=== PATIENT | male | born 1980 | race Caucasian/White ===

== ENCOUNTER 2016-06-11 19:43 | Emergency (ER) | payer OTHER, MEDICARE ==
[~2016-06-11 19:43] MED LIST: /DULO30CA; B12-1CHW PO; CALCCHW12; CLEO150C; THERGRAN; TRAZ50TA; VENL37TA PO; VITA50TA12
[2016-06-11] MEDS ORDERED: ONDANSETRON 4 MG ORAL DISINTEGRATING TAB (S0181) As Ordered ONE (20:32)
[2016-06-11] MEDS ORDERED: ACETAMINOPH W/CODEINE #3 TAB UD As Ordered ONE (20:32)
--- NOTE | 2016-06-11 21:00 | REPUSA ---
CT of the head Clinical history: Headache. Injury. Technique: Multiple axial CT images were obtained through the head without administration of contrast . Findings: The ventricles and sulci are symmetric bilaterally. There is no evidence of acute hemorrhag e or infarct. There is no midline shift, mass effect, or extra-axial fluid collection. The osseous st ructures are unremarkable. Moderate fluid in mucosal thickening is seen in the left maxillary and mahad ateral ethmoid sinuses. The other visualized paranasal sinuses and mastoid air cells are clear. Impression: No acute intracranial hemorrhage or infarct. Bilateral ethmoid and left maxillary sinusit is.
--- NOTE | 2016-06-11 21:00 | REPUSA ---
CT of the cervical spine Clinical history: Pain. Injury. Technique: Multiple axial CT images were obtained through the cervical spine without administration o f contrast. Coronal and sagittal 3-D reconstructed images were also obtained. Comparison: None. Findings: The cervical vertebral bodies are in satisfactory positioning and alignment. No fractures or dislocat ions are demonstrated. The odontoid process is intact. Intervertebral disc spaces are well-maintained . There is no evidence of facet subluxation. The neural foramen appear grossly patent. The cervical c ranial junction is intact. The cervical spinal canal demonstrates normal caliber and contour without evidence of spinal stenosis. The surrounding soft tissues are within normal limits. Impression: Unremarkable CT examination of the cervical spine.
[2016-06-11] MEDS ORDERED: ACETAMINOPHEN/CODEINE #3 TABLET (BULK) As Ordered ONE (21:56)
--- NOTE | 2016-06-11 22:20 | EDDOCDS ---
Nurse's Notes [facility] Name: Teofilo Guevara Age: 36 yrs Sex: Male : 1980 Arrival Date: 06/11/2016 Time: 19:43 Bed I6 / 28 Private MD: NO PRIMARY PHYSICIAN, . Diagnosis: Unspecified injury of head;Concussion;Cervicalgia Presentation: 06/11 20:00 Presenting complaint: Patient states: was at work going to get drink out of his car cz around 1600 slipped fell striking head against car c/o neck pain. Adult Sepsis Screening: The patient does not have new or worsening altered mentation. Patient's respiratory rate is less than 22. Systolic blood pressure is greater than 100. Patient has a qSOFA score of 0- Negative Sepsis Screen. Suicide/Homicide risk assessment- the patient denies having any suicidal and/or homicidal ideations and does not present with any other emotional, behavioral or mental health complaints. 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 Transition of care: patient was not received from another setting of care. 20:00 Acuity: HELGA Level 4 cz 20:00 Method Of Arrival: Walkin/Carried/Asstd cz Triage Assessment: 20:04 General: Appears uncomfortable. Pain: Location: scalp Pain currently is 10 out of 10 on cz a pain scale. HIV screening NA for this visit Offered previously. Historical: - Allergies: PENICILLINS; - Home Meds: 1. losartan 25 mg oral tab once daily 2. Albuterol Inhl prn - PMHx: Hypertension; Asthma; - PSHx: Gastric Bypass; tummy tuck; thigh reduction; Adenoidectomy; Tonsillectomy; Ear Tubes; Cholecystectomy; L-3 surgery; - Social history: Smoking status: Patient states was never smoker of tobacco. No barriers to communication noted, The patient speaks fluent Austrian, Speaks appropriately for age. - Family history: Not pertinent. - : The pt / caregiver states he / she is not on anticoagulants. Home medication list is obtained from the patient. - Exposure Risk Screening:: None identified. Screenin:41 Screening information is obtained from the patient. Fall risk: No risks identified. jmb Assistance ADL's: requires no assistance with activities of daily living. Abuse/DV Screen: The patient / caregiver reports he/she is: not in a situation that causes fear, pain or injury. Nutritional screening: No deficits noted. home support is adequate. 21:51 Advance Directives: Currently, there is no health care proxy. There is no active DNR jmb order. There is no living will. There is no Power of Document Reviewer. Assessment: 20:41 General: Appears in no apparent distress, uncomfortable, Behavior is appropriate for jmb age, cooperative. Pain: Location: back of head and posterior chest Pain currently is 8 out of 10 on a pain scale. Neurological: Level of Consciousness is awake, alert, obeys commands, Oriented to person, place, time, Retail Receiving Clerk are equal bilaterally Speech is normal, Facial symmetry appears normal, Facial symmetry: tongue is midline. Cardiovascular: Capillary refill < 3 seconds Heart tones S1 S2 present Pulses are all present. Rhythm is regular. Respiratory: Airway is patent Respiratory effort is even, unlabored, Respiratory pattern is regular, symmetrical, Breath sounds are clear bilaterally. GI: Abdomen is obese, Bowel sounds present X 4 quads. Abd is soft and non tender X 4 quads. Derm: Skin is pink, warm & dry. Musculoskeletal: Range of motion intact in all extremities. 21:26 General: Appears in no apparent distress, Behavior is appropriate for age, cooperative. jmb Neurological: Level of Consciousness is awake, alert, obeys commands, Oriented to person, place, time. Respiratory: Airway is patent Respiratory effort is even, unlabored, Respiratory pattern is regular, symmetrical. 21:51 General: Patient instructed on discharge instructions. Patient asked if there were any jmb questions regarding discharge, patient stated no. Patient signed discharge instructions. Patient discharged in stable condition. . 22:11 General: Shree Mcintyre notified of patients blood pressure. Provider reported no jmb concerns and ok'd patient for discharge. Vital Signs: 19:44 BP 137 / 82; Pulse 80; Resp 18 S; Temp 96.8(O); Pulse Ox 97% on R/A; Weight 72.57 kg gr2 (R); Height 4 ft. 0 in. (121.92 cm) (R); Pain 9/10; 22:06 BP 160 / 98 RA Supine (man/lg); jmb 22:12 Pulse 65; Resp 20; Temp 96.5(O); Pulse Ox 98% on R/A; Pain 8/10; kb5 19:44 Body Mass Index 48.82 (72.57 kg, 121.92 cm) gr2 Vitals: 19:44 Log In Time: June 11, 2016 at 19:44. gr2 ED Course: 19:44 Patient visited by Francie Infante. gr2 19:44 NO PRIMARY PHYSICIAN, . is Private Physician. gr2 19:44 Patient moved to Waiting gr2 19:46 Patient visited by Francie Infante. gr2 19:46 Patient moved to Pre RCE gr2 20:02 Triage Initiated cz 20:05 Patient moved to I6 cz 20:06 Colten Sandoval RPA-C is PHCP. ck7 20:06 Jesus Manuel Hess DO is Attending Physician. ck7 20:06 Patient visited by Colten Sandoval RPA-C. ck7 20:41 Patient visited by Colten Sandoval RPA-C. ck7 20:41 The patient / caregiver is instructed regarding the plan of care and ED course. jmb 20:41 No IV's were initiated during this patient's visit. No procedures done that require jmb assistance. 20:43 Patient visited by Lupillo Collins RN. jmb 21:26 Patient visited by Lupillo Collins RN. jmb 21:41 CT Spine,Cervical W/o Contrast Returned. EDMS 21:41 CT Head Without Contrast Returned. EDMS 21:49 [facility] is Referral Physician. ck7 21:49 Waldemar Gomez MD is Referral Physician. ck7 22:09 [facility] Payment Agreement was scanned into [employer] and attached to record. gjb 22:13 Patient visited by Timothy Sage PCA. kb5 Administered Medications: 20:38 Drug: Acetaminophen-Codeine 2 tabs [acetaminophen 300 mg-codeine 30 mg tablet (2 tabs)] nita Route: PO; 20:38 Drug: Ondansetron ODT 4 mg [ondansetron 4 mg disintegrating tablet (1 tabs)] Route: PO; jmb 21:59 Drug: Acetaminophen-Codeine, 4 pack- 1 packets [acetaminophen 300 mg-codeine 30 mg jmb tablet (1 tabs)] {Co-Signature: [email or web address] (Marco A Moody RN).} Route: PO; Order Results: Radiology Order: CT Head Without Contrast Test: CT Head Without Contrast REASON FOR EXAMINATION: HEAD INJURY, R/O BLEED; ; CT of the head; Clinical history: Headache. Injury.; Technique: Multiple axial CT images were obtained through the head without administration of contrast; .; Findings: The ventricles and sulci are symmetric bilaterally. There is no evidence of acute hemorrhag; e or infarct. There is no midline shift, mass effect, or extra-axial fluid collection. The osseous st; ructures are unremarkable. Moderate fluid in mucosal thickening is seen in the left maxillary and mahad; ateral ethmoid sinuses. The other visualized paranasal sinuses and mastoid air cells are clear.; Impression: No acute intracranial hemorrhage or infarct. Bilateral ethmoid and left maxillary sinusit; is.; ; Radiology Order: CT Spine,Cervical W/o Contrast Test: CT Spine,Cervical W/o Contrast REASON FOR EXAMINATION: FALL, NECK PAIN, R/O FX; ; CT of the cervical spine; Clinical history: Pain. Injury.; Technique: Multiple axial CT images were obtained through the cervical spine without administration o; f contrast. Coronal and sagittal 3-D reconstructed images were also obtained.; Comparison: None.; Findings:; The cervical vertebral bodies are in satisfactory positioning and alignment. No fractures or dislocat; ions are demonstrated. The odontoid process is intact. Intervertebral disc spaces are well-maintained; . There is no evidence of facet subluxation. The neural foramen appear grossly patent. The cervical c; ranial junction is intact. The cervical spinal canal demonstrates normal caliber and contour without; evidence of spinal stenosis. The surrounding soft tissues are within normal limits.; Impression: Unremarkable CT examination of the cervical spine.; ; Outcome: 21:50 Discharge ordered by Provider. ck7 21:51 Discharge Assessment: Patient awake, alert and oriented x 3. No cognitive and/or jmb functional deficits noted. Patient verbalized understanding of disposition instructions. Patient awake and alert. obeys commands, Oriented to person, place and time. Patient verbalized understanding of disposition instructions. Patient has no functional deficits. patient administered narcotics - yes. Pt provided with safe discharge. The following High Risk Discharge criteria are identified: None. Discharged to home ambulatory. Condition: stable Condition: improved. Discharge instructions given to patient, Instructed on discharge instructions, follow up and referral plans. Demonstrated understanding of instructions, Pt was receptive of discharge instructions/ teaching. No special radiology studies were completed. Property sent home with patient. 21:52 CT Study completed. b 22:19 Patient left the ED. nita Signatures: Dispatcher [employer] EDNathaniel Dia, RN RN Timothy Carrasco, BRANCH ADMINISTRATOR BRANCH ADMINISTRATOR kb5 Colten Sandoval, RPA-C RPA-Cck7 Francie Infante gr2 Lupillo Collins,RN RN Maribel Stoner RN jf3 SERGEI
--- NOTE | 2016-06-11 22:20 | EDDOCDS ---
Physician Documentation [facility] Name: Teofiol Guevara Age: 36 yrs Sex: Male : 1980 Arrival Date: 06/11/2016 Time: 19:43 Bed I6 / 28 Private MD: NO PRIMARY PHYSICIAN, . Disposition: 06/11/16 21:50 Discharged to Home/Self Care. Impression: Unspecified injury of head, Concussion, Cervicalgia. - Condition is Stable. - Discharge Instructions: Concussion, Adult, Head Injury, Adult, Soft Tissue Injury of the Neck. - Prescriptions for Tylenol- Codeine #3 300-30 mg Oral Tablet - take 2 tablets by ORAL route every 6 hours As needed MDD: 4 tabs; 16 tablet. - Work Release Form - 3 day, Medication Reconciliation, Local Pharmacy Hours form. - [facility] up: [facility]; When: 2 - 3 days; Reason: Recheck today's complaints, Continuance of care. Follow up: Waldemar Gomez MD; When: 2 - 3 days; Reason: Recheck today's complaints, Continuance of care. - Problem is new. - Symptoms have improved. - Notes: USE PAIN MEDICATION INSTRUCTED, FOLLOW UP WITH YOUR DOCTOR AND DR GOMEZ, RETURN TO THE ER IF THE SYMPTOMS WORSEN OR BECOME CONCERNING Historical: - Allergies: PENICILLINS; - Home Meds: 1. losartan 25 mg oral tab once daily 2. Albuterol Inhl prn - PMHx: Hypertension; Asthma; - PSHx: Gastric Bypass; tummy tuck; thigh reduction; Adenoidectomy; Tonsillectomy; Ear Tubes; Cholecystectomy; L-3 surgery; - Social history: Smoking status: Patient states was never smoker of tobacco. No barriers to communication noted, The patient speaks fluent Uzbek, Speaks appropriately for age. - Family history: Not pertinent. - : The pt / caregiver states he / she is not on anticoagulants. Home medication list is obtained from the patient. - Exposure Risk Screening:: None identified. Vital Signs: 06/11 19:44 BP 137 / 82; Pulse 80; Resp 18 S; Temp 96.8(O); Pulse Ox 97% on R/A; Weight 72.57 kg / gr2 159.99 lbs (R); Height 4 ft. 0 in. (121.92 cm) (R); Pain 9/10; 22:06 BP 160 / 98 RA Supine (man/lg); jmb 22:12 Pulse 65; Resp 20; Temp 96.5(O); Pulse Ox 98% on R/A; Pain 8/10; kb5 19:44 Body Mass Index 48.82 (72.57 kg, 121.92 cm) gr2 MDM: 20:14 Apply Linh Collar to Patient. ordered. ck7 20:14 Acetaminophen-Codeine 300 mg-30 mg 2 tabs PO once ordered. ck7 20:15 CT Head Without Contrast Ordered. EDMS 20:15 CT Spine,Cervical W/o Contrast Ordered. EDMS 20:17 Ondansetron ODT Oral Disintegrating Tablet 4 mg PO once ordered. ck7 20:38 Financial registration complete. gjb 21:47 CT Head Without Contrast Reviewed. ck7 21:47 CT Spine,Cervical W/o Contrast Reviewed. ck7 21:52 Acetaminophen-Codeine, 4 pack- 300 mg-30 mg 1 packets PO once; Dispense with patient. ck7 Take per package instructions. ordered. 22:09 [facility] Payment Agreement was scanned into [email or web address] and attached to record. [facility] Administered Medications: 20:38 Drug: Acetaminophen-Codeine 2 tabs [acetaminophen 300 mg-codeine 30 mg tablet (2 tabs)] nita Route: PO; 20:38 Drug: Ondansetron ODT 4 mg [ondansetron 4 mg disintegrating tablet (1 tabs)] Route: PO; b 21:59 Drug: Acetaminophen-Codeine, 4 pack- 1 packets [acetaminophen 300 mg-codeine 30 mg nita tablet (1 tabs)] {Co-Signature: [email or web address] (Marco A Moody RN).} Route: PO; Signatures: Dispatcher [employer] EDMS Nathaniel Talley, Colten Hidalgo RN, CLARISA-C RPA-Cck7 Lupillo Collins RN RN jmb Beck, Gabriela gjb Justin Farman RN jf3 The chart was reviewed and I authenticate all verbal orders and agree with the evaluation and treatment provided.Attachments: 22:09 [facility] Payment Agreement [facility] MTDD
--- NOTE | 2016-06-13 23:20 | EDDOCDS ---
Nurse's Notes [facility] Name: Teofilo Guevara Age: 36 yrs Sex: Male : 1980 Arrival Date: 06/11/2016 Time: 19:43 Bed I6 / 28 Private MD: NO PRIMARY PHYSICIAN, . Diagnosis: Unspecified injury of head;Concussion;Cervicalgia Presentation: 06/11 20:00 Presenting complaint: Patient states: was at work going to get drink out of his car cz around 1600 slipped fell striking head against car c/o neck pain. Adult Sepsis Screening: The patient does not have new or worsening altered mentation. Patient's respiratory rate is less than 22. Systolic blood pressure is greater than 100. Patient has a qSOFA score of 0- Negative Sepsis Screen. Suicide/Homicide risk assessment- the patient denies having any suicidal and/or homicidal ideations and does not present with any other emotional, behavioral or mental health complaints. 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 Transition of care: patient was not received from another setting of care. 20:00 Acuity: HELGA Level 4 cz 20:00 Method Of Arrival: Walkin/Carried/Asstd cz Triage Assessment: 20:04 General: Appears uncomfortable. Pain: Location: scalp Pain currently is 10 out of 10 on cz a pain scale. HIV screening NA for this visit Offered previously. Historical: - Allergies: PENICILLINS; - Home Meds: 1. losartan 25 mg oral tab once daily 2. Albuterol Inhl prn - PMHx: Hypertension; Asthma; - PSHx: Gastric Bypass; tummy tuck; thigh reduction; Adenoidectomy; Tonsillectomy; Ear Tubes; Cholecystectomy; L-3 surgery; - Social history: Smoking status: Patient states was never smoker of tobacco. No barriers to communication noted, The patient speaks fluent South Korean, Speaks appropriately for age. - Family history: Not pertinent. - : The pt / caregiver states he / she is not on anticoagulants. Home medication list is obtained from the patient. - Exposure Risk Screening:: None identified. Screenin:41 Screening information is obtained from the patient. Fall risk: No risks identified. jmb Assistance ADL's: requires no assistance with activities of daily living. Abuse/DV Screen: The patient / caregiver reports he/she is: not in a situation that causes fear, pain or injury. Nutritional screening: No deficits noted. home support is adequate. 21:51 Advance Directives: Currently, there is no health care proxy. There is no active DNR jmb order. There is no living will. There is no Power of Body Make Up Artist. Assessment: 20:41 General: Appears in no apparent distress, uncomfortable, Behavior is appropriate for jmb age, cooperative. Pain: Location: back of head and posterior chest Pain currently is 8 out of 10 on a pain scale. Neurological: Level of Consciousness is awake, alert, obeys commands, Oriented to person, place, time, [place] Department Supervisor are equal bilaterally Speech is normal, Facial symmetry appears normal, Facial symmetry: tongue is midline. Cardiovascular: Capillary refill < 3 seconds Heart tones S1 S2 present Pulses are all present. Rhythm is regular. Respiratory: Airway is patent Respiratory effort is even, unlabored, Respiratory pattern is regular, symmetrical, Breath sounds are clear bilaterally. GI: Abdomen is obese, Bowel sounds present X 4 quads. Abd is soft and non tender X 4 quads. Derm: Skin is pink, warm & dry. Musculoskeletal: Range of motion intact in all extremities. 21:26 General: Appears in no apparent distress, Behavior is appropriate for age, cooperative. jmb Neurological: Level of Consciousness is awake, alert, obeys commands, Oriented to person, place, time. Respiratory: Airway is patent Respiratory effort is even, unlabored, Respiratory pattern is regular, symmetrical. 21:51 General: Patient instructed on discharge instructions. Patient asked if there were any jmb questions regarding discharge, patient stated no. Patient signed discharge instructions. Patient discharged in stable condition. . 22:11 General: Shree Mcintyre notified of patients blood pressure. Provider reported no jmb concerns and ok'd patient for discharge. Vital Signs: 19:44 BP 137 / 82; Pulse 80; Resp 18 S; Temp 96.8(O); Pulse Ox 97% on R/A; Weight 72.57 kg gr2 (R); Height 4 ft. 0 in. (121.92 cm) (R); Pain 9/10; 22:06 BP 160 / 98 RA Supine (man/lg); jmb 22:12 Pulse 65; Resp 20; Temp 96.5(O); Pulse Ox 98% on R/A; Pain 8/10; kb5 19:44 Body Mass Index 48.82 (72.57 kg, 121.92 cm) gr2 Vitals: 19:44 Log In Time: June 11, 2016 at 19:44. gr2 ED Course: 19:44 Patient visited by Francie Infante. gr2 19:44 NO PRIMARY PHYSICIAN, . is Private Physician. gr2 19:44 Patient moved to Waiting gr2 19:46 Patient visited by Francie Infante. gr2 19:46 Patient moved to Pre RCE gr2 20:02 Triage Initiated cz 20:05 Patient moved to I6 cz 20:06 Colten Sandoval RPA-C is PHCP. ck7 20:06 Jesus Manuel Hess DO is Attending Physician. ck7 20:06 Patient visited by Colten Sandoval RPA-C. ck7 20:41 Patient visited by Colten Sandoval RPA-C. ck7 20:41 The patient / caregiver is instructed regarding the plan of care and ED course. jmb 20:41 No IV's were initiated during this patient's visit. No procedures done that require jmb assistance. 20:43 Patient visited by Lupillo Collins RN. jmb 21:26 Patient visited by Lupillo Collins RN. jmb 21:41 CT Spine,Cervical W/o Contrast Returned. EDMS 21:41 CT Head Without Contrast Returned. EDMS 21:49 [facility] is Referral Physician. ck7 21:49 Waldemar Gomez MD is Referral Physician. ck7 22:09 [facility] Payment Agreement was scanned into [employer] and attached to record. gjb 22:13 Patient visited by Timothy Sage PCA. kb5 06/12 10:23 T-Sheet-- Draft Copy was scanned into [employer] and attached to record. gb 10:24 Radiology Report was scanned into [employer] and attached to record. gb Administered Medications: 06/11 20:38 Drug: Acetaminophen-Codeine 2 tabs [acetaminophen 300 mg-codeine 30 mg tablet (2 tabs)] nita Route: PO; 20:38 Drug: Ondansetron ODT 4 mg [ondansetron 4 mg disintegrating tablet (1 tabs)] Route: PO; jmb 21:59 Drug: Acetaminophen-Codeine, 4 pack- 1 packets [acetaminophen 300 mg-codeine 30 mg jmb tablet (1 tabs)] {Co-Signature: [email or web address] (Marco A Moody RN).} Route: PO; Order Results: Radiology Order: CT Head Without Contrast Test: CT Head Without Contrast REASON FOR EXAMINATION: HEAD INJURY, R/O BLEED; ; CT of the head; Clinical history: Headache. Injury.; Technique: Multiple axial CT images were obtained through the head without administration of contrast; .; Findings: The ventricles and sulci are symmetric bilaterally. There is no evidence of acute hemorrhag; e or infarct. There is no midline shift, mass effect, or extra-axial fluid collection. The osseous st; ructures are unremarkable. Moderate fluid in mucosal thickening is seen in the left maxillary and mahad; ateral ethmoid sinuses. The other visualized paranasal sinuses and mastoid air cells are clear.; Impression: No acute intracranial hemorrhage or infarct. Bilateral ethmoid and left maxillary sinusit; is.; ; Radiology Order: CT Spine,Cervical W/o Contrast Test: CT Spine,Cervical W/o Contrast REASON FOR EXAMINATION: FALL, NECK PAIN, R/O FX; ; CT of the cervical spine; Clinical history: Pain. Injury.; Technique: Multiple axial CT images were obtained through the cervical spine without administration o; f contrast. Coronal and sagittal 3-D reconstructed images were also obtained.; Comparison: None.; Findings:; The cervical vertebral bodies are in satisfactory positioning and alignment. No fractures or dislocat; ions are demonstrated. The odontoid process is intact. Intervertebral disc spaces are well-maintained; . There is no evidence of facet subluxation. The neural foramen appear grossly patent. The cervical c; ranial junction is intact. The cervical spinal canal demonstrates normal caliber and contour without; evidence of spinal stenosis. The surrounding soft tissues are within normal limits.; Impression: Unremarkable CT examination of the cervical spine.; ; Outcome: 21:50 Discharge ordered by Provider. ck7 21:51 Discharge Assessment: Patient awake, alert and oriented x 3. No cognitive and/or jmb functional deficits noted. Patient verbalized understanding of disposition instructions. Patient awake and alert. obeys commands, Oriented to person, place and time. Patient verbalized understanding of disposition instructions. Patient has no functional deficits. patient administered narcotics - yes. Pt provided with safe discharge. The following High Risk Discharge criteria are identified: None. Discharged to home ambulatory. Condition: stable Condition: improved. Discharge instructions given to patient, Instructed on discharge instructions, follow up and referral plans. Demonstrated understanding of instructions, Pt was receptive of discharge instructions/ teaching. No special radiology studies were completed. Property sent home with patient. 21:52 CT Study completed. jmb 22:19 Patient left the ED. b Signatures: Dispatcher [employer] EDMS Nathaniel Talley, RN RN Stephanie Small, Reg Reg gb Timothy Sage, ENVIRONMENTAL HEALTH AND SAFETY LEADER ENVIRONMENTAL HEALTH AND SAFETY LEADER kb5 Colten Sandoval, RPA-C RPA-Cck7 Francie Infante gr2 Lupillo Collins,Maribel Joseph RN, RN jf3 Chart Complete SERGEI
--- NOTE | 2016-06-13 23:20 | EDDOCDS ---
Physician Documentation [facility] Name: Teofilo Guevara Age: 36 yrs Sex: Male : 1980 Arrival Date: 06/11/2016 Time: 19:43 Bed I6 / 28 Private MD: NO PRIMARY PHYSICIAN, . Disposition: 06/11/16 21:50 Discharged to Home/Self Care. Impression: Unspecified injury of head, Concussion, Cervicalgia. - Condition is Stable. - Discharge Instructions: Concussion, Adult, Head Injury, Adult, Soft Tissue Injury of the Neck. - Prescriptions for Tylenol- Codeine #3 300-30 mg Oral Tablet - take 2 tablets by ORAL route every 6 hours As needed MDD: 4 tabs; 16 tablet. - Work Release Form - 3 day, Medication Reconciliation, Local Pharmacy Hours form. - [facility]; When: 2 - 3 days; Reason: Recheck today's complaints, Continuance of care. Follow up: Waldemar Gomez MD; When: 2 - 3 days; Reason: Recheck today's complaints, Continuance of care. - Problem is new. - Symptoms have improved. - Notes: USE PAIN MEDICATION INSTRUCTED, FOLLOW UP WITH YOUR DOCTOR AND DR GOMEZ, RETURN TO THE ER IF THE SYMPTOMS WORSEN OR BECOME CONCERNING Historical: - Allergies: PENICILLINS; - Home Meds: 1. losartan 25 mg oral tab once daily 2. Albuterol Inhl prn - PMHx: Hypertension; Asthma; - PSHx: Gastric Bypass; tummy tuck; thigh reduction; Adenoidectomy; Tonsillectomy; Ear Tubes; Cholecystectomy; L-3 surgery; - Social history: Smoking status: Patient states was never smoker of tobacco. No barriers to communication noted, The patient speaks fluent Sinhala, Speaks appropriately for age. - Family history: Not pertinent. - : The pt / caregiver states he / she is not on anticoagulants. Home medication list is obtained from the patient. - Exposure Risk Screening:: None identified. Vital Signs: 06/11 19:44 BP 137 / 82; Pulse 80; Resp 18 S; Temp 96.8(O); Pulse Ox 97% on R/A; Weight 72.57 kg / gr2 159.99 lbs (R); Height 4 ft. 0 in. (121.92 cm) (R); Pain 9/10; 22:06 BP 160 / 98 RA Supine (man/lg); jmb 22:12 Pulse 65; Resp 20; Temp 96.5(O); Pulse Ox 98% on R/A; Pain 8/10; kb5 19:44 Body Mass Index 48.82 (72.57 kg, 121.92 cm) gr2 MDM: 20:14 Apply Linh Collar to Patient. ordered. ck7 20:14 Acetaminophen-Codeine 300 mg-30 mg 2 tabs PO once ordered. ck7 20:15 CT Head Without Contrast Ordered. EDMS 20:15 CT Spine,Cervical W/o Contrast Ordered. EDMS 20:17 Ondansetron ODT Oral Disintegrating Tablet 4 mg PO once ordered. ck7 20:38 Financial registration complete. gjb 21:47 CT Head Without Contrast Reviewed. ck7 21:47 CT Spine,Cervical W/o Contrast Reviewed. ck7 21:52 Acetaminophen-Codeine, 4 pack- 300 mg-30 mg 1 packets PO once; Dispense with patient. ck7 Take per package instructions. ordered. 22:09 [facility] Payment Agreement was scanned into [employer] and attached to record. b 06/12 10:23 T-Sheet-- Draft Copy was scanned into [employer] and attached to record. gb 10:24 Radiology Report was scanned into [employer] and attached to record. gb Administered Medications: 06/11 20:38 Drug: Acetaminophen-Codeine 2 tabs [acetaminophen 300 mg-codeine 30 mg tablet (2 tabs)] [facility] Route: PO; 20:38 Drug: Ondansetron ODT 4 mg [ondansetron 4 mg disintegrating tablet (1 tabs)] Route: PO; jmb 21:59 Drug: Acetaminophen-Codeine, 4 pack- 1 packets [acetaminophen 300 mg-codeine 30 mg [facility] tablet (1 tabs)] {Co-Signature: buzz (Marco A Moody RN).} Route: PO; Signatures: Dispatcher [employer] EDMS Nathaniel Talley, RN RN Stephanie Small, Reg Reg gb Colten Sandoval, RPA-C RPA-Cck7 Lupillo Collins,Maribel Joseph RN, RN The chart was reviewed and I authenticate all verbal orders and agree with the evaluation and treatment provided.Attachments: 22:09 [facility] Payment Agreement gjb 06/12 10:23 T-Sheet-- Draft Copy gb Chart Complete MTDD
--- NOTE | 2016-06-13 23:20 | EDDOCDS ---
Physician Documentation [facility] Name: Teofilo Guevara Age: 36 yrs Sex: Male : 1980 Arrival Date: 06/11/2016 Time: 19:43 Bed I6 / 28 Private MD: NO PRIMARY PHYSICIAN, . Disposition: 06/11/16 21:50 Discharged to Home/Self Care. Impression: Unspecified injury of head, Concussion, Cervicalgia. - Condition is Stable. - Discharge Instructions: Concussion, Adult, Head Injury, Adult, Soft Tissue Injury of the Neck. - Prescriptions for Tylenol- Codeine #3 300-30 mg Oral Tablet - take 2 tablets by ORAL route every 6 hours As needed MDD: 4 tabs; 16 tablet. - Work Release Form - 3 day, Medication Reconciliation, Local Pharmacy Hours form. - Follow up: [facility]; When: 2 - 3 days; Reason: Recheck today's complaints, Continuance of care. Follow up: Waldemar Gomez MD; When: 2 - 3 days; Reason: Recheck today's complaints, Continuance of care. - Problem is new. - Symptoms have improved. - Notes: USE PAIN MEDICATION INSTRUCTED, FOLLOW UP WITH YOUR DOCTOR AND DR GOMEZ, RETURN TO THE ER IF THE SYMPTOMS WORSEN OR BECOME CONCERNING Historical: - Allergies: PENICILLINS; - Home Meds: 1. losartan 25 mg oral tab once daily 2. Albuterol Inhl prn - PMHx: Hypertension; Asthma; - PSHx: Gastric Bypass; tummy tuck; thigh reduction; Adenoidectomy; Tonsillectomy; Ear Tubes; Cholecystectomy; L-3 surgery; - Social history: Smoking status: Patient states was never smoker of tobacco. No barriers to communication noted, The patient speaks fluent Slovak, Speaks appropriately for age. - Family history: Not pertinent. - : The pt / caregiver states he / she is not on anticoagulants. Home medication list is obtained from the patient. - Exposure Risk Screening:: None identified. Vital Signs: 06/11 19:44 BP 137 / 82; Pulse 80; Resp 18 S; Temp 96.8(O); Pulse Ox 97% on R/A; Weight 72.57 kg / gr2 159.99 lbs (R); Height 4 ft. 0 in. (121.92 cm) (R); Pain 9/10; 22:06 BP 160 / 98 RA Supine (man/lg); jmb 22:12 Pulse 65; Resp 20; Temp 96.5(O); Pulse Ox 98% on R/A; Pain 8/10; kb5 19:44 Body Mass Index 48.82 (72.57 kg, 121.92 cm) gr2 MDM: 20:14 Apply Linh Collar to Patient. ordered. ck7 20:14 Acetaminophen-Codeine 300 mg-30 mg 2 tabs PO once ordered. ck7 20:15 CT Head Without Contrast Ordered. EDMS 20:15 CT Spine,Cervical W/o Contrast Ordered. EDMS 20:17 Ondansetron ODT Oral Disintegrating Tablet 4 mg PO once ordered. ck7 20:38 Financial registration complete. gjb 21:47 CT Head Without Contrast Reviewed. ck7 21:47 CT Spine,Cervical W/o Contrast Reviewed. ck7 21:52 Acetaminophen-Codeine, 4 pack- 300 mg-30 mg 1 packets PO once; Dispense with patient. ck7 Take per package instructions. ordered. 22:09 [facility] Payment Agreement was scanned into [employer] and attached to record. b 06/12 10:23 T-Sheet-- Draft Copy was scanned into [employer] and attached to record. gb 10:24 Radiology Report was scanned into [employer] and attached to record. gb Administered Medications: 06/11 20:38 Drug: Acetaminophen-Codeine 2 tabs [acetaminophen 300 mg-codeine 30 mg tablet (2 tabs)] [facility] Route: PO; 20:38 Drug: Ondansetron ODT 4 mg [ondansetron 4 mg disintegrating tablet (1 tabs)] Route: PO; jmb 21:59 Drug: Acetaminophen-Codeine, 4 pack- 1 packets [acetaminophen 300 mg-codeine 30 mg [facility] tablet (1 tabs)] {Co-Signature: buzz (Marco A Moody RN).} Route: PO; Signatures: Dispatcher [employer] EDMS Nathaniel Talley, RN RN Stephanie Small, Reg Reg gb Colten Sandoval, RPA-C RPA-Cck7 Lupillo Collins,Maribel Jsoeph RN, RN The chart was reviewed and I authenticate all verbal orders and agree with the evaluation and treatment provided.Attachments: 22:09 [facility] Payment Agreement gjb 06/12 10:23 T-Sheet-- Draft Copy gb Chart Complete MTDD
== END 2016-06-11 22:19 | disposition home or self-care (01) ==
LOC: M ED 19:43
DX: S06.0X0A Concussion without loss of consciousness, initial encounter (principal); M54.2 Cervicalgia; W18.09XA Striking against other object with subsequent fall, initial encounter; Y92.019 Unspecified place in single-family (private) house as the place of occurrence of the external cause; Y99.8 Other external cause status; I10 Essential (primary) hypertension; J45.909 Unspecified asthma, uncomplicated; Z98.84 Bariatric surgery status; Z90.49 Acquired absence of other specified parts of digestive tract; Z90.89 Acquired absence of other organs; Z79.899 Other long term (current) drug therapy; Z88.0 Allergy status to penicillin

== ENCOUNTER → 2020-04-27 | Outpatient (CLI) | payer BC ==
[~2020-04-27] MED LIST changes: -/DULO30CA; +CYMB1CAP5
--- NOTE | 2020-04-28 23:49 | ECWPNPC ---
PATIENT NAME: PEREZ NEWMAN : 1980 GENDER: MALE VISIT DATE: 04/27/2020 DISCHARGE DATE: 04/27/20 1159 VISIT LOCKED DATE TIME: PHYSICIAN: RENETTA DUONG RESOURCE: RENETTA DUONG REASON FOR APPOINTMENT 1. BACK NECK HISTORY OF PRESENT ILLNESS DEPRESSION SCREENING: PHQ-9 LITTLE INTEREST OR PLEASURE IN DOING THINGSSEVERAL DAYS FEELING DOWN, DEPRESSED, OR HOPELESSMORE THAN HALF THE DAYS TROUBLE FALLING OR STAYING ASLEEP, OR SLEEPING TOO MUCHNOT AT ALL FEELING TIRED OR HAVING LITTLE ENERGYSEVERAL DAYS POOR APPETITE OR OVEREATING NOT AT ALL FEELING BAD ABOUT YOURSELF-OR THAT YOU ARE A FAILURE OR HAVE LET YOURSELF OR YOUR FAMILY DOWN MORE THAN HALF THE DAYS TROUBLE CONCENTRATING ON THINGS, SUCH READING THE NEWSPAPER OR WATCHING TELEVISION NOT AT ALL MOVING OR SPEAKING SO SLOWLY THAT OTHER PEOPLE COULD HAVE NOTICED. OR THE OPPOSITE- BEING SO FIDGETY OR RESTLESS THAT YOU HAVE BEEN MOVING AROUND A LOT MORE THAN USUALMORE THAN HALF THE DAYS THOUGHTS THAT YOU WOULD BE BETTER OFF , OR OF HURTING YOURSELF IN SOME WAY?NOT AT ALL TOTAL SCORE:8 INTERPRETATIONMILD DEPRESSION PHQ-2 (2015 EDITION) LITTLE INTEREST OR PLEASURE IN DOING THINGS?NOT AT ALL FEELING DOWN, DEPRESSED, OR HOPELESS?MORE THAN HALF THE DAYS TOTAL SCORE2 39-YEAR-OLD MALE IN FOR INITIAL PAIN CONSULT REGARDING HIS NECK AND BACK. PATIENT STATES THAT HE HAS HAD LOW BACK PAIN SINCE 2000 AND HE FURTHER STATES HIS NECK PAIN STARTED IN 2017 WHEN HE FELL ON THE ICE AND HIT HIS HEAD ON A CAR. HE RATES HIS PAIN CURRENTLY AT A 10 OUT OF 10 AND DESCRIBES IT STABBING. WHEN ASKED PATIENT ADMITS TO BEING ON PERCOCET IN THE PAST AND FOUND FINDING IT BENEFICIAL. GENERAL: - - -. FALL RISK SCREENING: SCREENING :NO FALLS REPORTED IN THE LAST YEAR PAIN SCREENING: PATIENT HAS A COMPLAINT OF ACUTE OR CHRONIC PAIN :YES LOCATION OF PAIN:NECK, MID BACK, LOW BACK INTENSITY OF PAIN (SCALE OF 1 TO 10):10 WHAT DOES YOUR PAIN FEEL LIKE:STABBING DURATION:CONTINOUS PAIN IS INCREASED BY:ACTIVITIES PAIN IS DECREASED BY:OTHERS LAYING FLAT NURSING NOTE: - - -. PAIN CENTER INTAKE QUESTIONS: DO YOU HAVE A HISTORY OF MRSA? :NO DO YOU TAKE A BLOOD THINNERS? :NO DO YOU HAVE ANY BLEEDING DISORDERS? :NO ANY NEW NUMBNESS OR WEAKNESS IN YOUR LEGS OR ARMS? :NO ANY PACEMAKER,DEFIBRILLATOR, OR DORSAL COLUMN STIMULATOR? :NO DO YOU HAVE ANY RASHES OR OPEN SORES? :NO ARE YOU ALLERGIC TO IV DYE? :NO ARE YOU DIABETIC? :NO ANY NEW PROBLEMS WITH YOUR MEDICATIONS? :NO HAVE YOU RECEIVED A VACCINE IN THE PAST 30 DAYS? :NO DO YOU PLAN TO RECEIVE A VACCINE IN THE NEXT 21 DAYS? :NO DO YOU NEED ANY PRESCRIPTION? :NO DO YOU TAKE ANY IMMUNOSUPPRESSIVE MEDICATIONS? :NO ANY HISTORY OF SEIZURES? :NO ANY HISTORY OF CARDIAC ISSUES OR EVENTS? :NO DO YOU HAVE SLEEP APNEA? :YES DO YOU WEAR A CPAP?YES ANY RECENT HEAD INJURY? :NO DO YOU HAVE ANY NEW INFECTIONS? :NO CURRENT MEDICATIONS TAKING VITAMIN B12 100 MCG TABLET DIRECTED ORALLY ONE TAB BY MOUTH 3 TIMES WEEKLY TAKING ALBUTEROL SULFATE (2.5 MG/3ML) 0.083% NEBULIZATION SOLUTION 3 ML NEEDED INHALATION EVERY 8 HOURS NEEDED TAKING ALBUTEROL SULFATE HFA 108 (90 BASE) MCG/ACT AEROSOL SOLUTION 1 PUFF NEEDED INHALATION EVERY 6 HOURS NEEDED TAKING SERTRALINE HCL 100 MG TABLET 1.5 TABS ORALLY ONCE A DAY TAKING FLUTICASONE PROPIONATE 50 MCG/ACT SUSPENSION 1 SPRAY IN EACH NOSTRIL NASALLY ONCE A DAY TAKING COLACE 100 MG CAPSULE 1 CAPSULE NEEDED ORALLY ONCE A DAY, NOTES: UP TO 4 TIMES A DAY PRN TAKING LEVOCETIRIZINE DIHYDROCHLORIDE 5 MG TABLET 1 TABLET IN THE EVENING ORALLY ONCE A DAY TAKING PRAZOSIN HCL 2 MG CAPSULE 1 CAPSULE AT BEDTIME ORALLY ONCE A DAY TAKING BUSPIRONE HCL 15 MG TABLET 1 TABLET ORALLY THREE TIMES DAILY TAKING LITHIUM CARBONATE 300 MG CAPSULE 1 CAP ORALLY BID TAKING REMERON 15 MG TABLET 1/2 TAB ORALLY BEFORE BEDTIME TAKING BIOTIN MAXIMUM STRENGTH 5000 MCG CAPSULE 1 CAPSULE ORALLY ONCE A DAY TAKING VITAMIN D3 MAXIMUM STRENGTH 125 MCG (5000 UT) CAPSULE DIRECTED ORALLY DAILY TAKING LOSARTAN POTASSIUM 50 MG TABLET 1 TABLET ORALLY ONCE A DAY TAKING HYDROCHLOROTHIAZIDE 12.5 MG CAPSULE 1 CAPSULE IN THE MORNING ORALLY ONCE A DAY NOT-TAKING TRAMADOL HCL 50 MG TABLET 1 TABLET NEEDED ORALLY THREE TIMES DAILY NEEDED NOT-TAKING PERCOCET 5-325 MG TABLET 1 TABLET NEEDED ORALLY EVERY 6 HRS NOT-TAKING GABAPENTIN 600 MG TABLET 1 TABLET ORALLY THREE TIMES DAILY MEDICATION LIST REVIEWED AND RECONCILED WITH THE PATIENT PAST MEDICAL HISTORY HYPERTENSION ASTHMA DEPRESSION/ANXIETY/MOOD DISORDER GERD CHRONIC NECK & BACK PAIN SEASONAL ALLERGIES ACONDROPLASIA ( DWARFISM) ALLERGIC RHINITIS VITAMIN D DEFICIENCY CERVICAL DISC DISPLACEMENT DISC DISPLACEMENT- LUMBAR ALLERGIES PENICILLIN: DYSPNEA - ALLERGY DARVOCET-N 100: RASH - ALLERGY SOMA: RASH - ALLERGY WELLBUTRIN: RASH - ALLERGY VICODIN: RASH - ALLERGY SURGICAL HISTORY GASTRIC BYPASS 2008 HERNIA REPAIRS ( MULTIPLE) 2008, 2016, 2017 CHOLECYSTECTOMY 2009 TONSILS, ADENOIDS, TUBE INSERTION 1987 BACK SURGERY 2003 HERNIA REPAIR WITH MESH INSERTION 2016 TUMMY TUCK, THIGH REDUCTION 2010 FAMILY HISTORY FATHER: ALIVE, DIAGNOSED WITH HYPERTENSION MOTHER: ALIVE, HYPERTENSION, DIABETES 1 BROTHER(S) , 1 SISTER(S) - HEALTHY. MOTHER- HYPERTENSION, DIABETESFATHER- HYPERTENSION, HEART DISEASE. SOCIAL HISTORY GENERAL: TOBACCO USE ARE YOU A:NONSMOKER LATEX QUESTIONNAIRE LATEX ALLERGY : HAVE YOU EVER DEVELOPED ANY TYPE OF REACTION AFTER HANDLING LATEX PRODUCTS SUCH RUBBER GLOVES, CONDOMS, DIAPHRAGMS, BALLOONS, SOCKS, OR UNDERWEAR?NO LATEX ALLERGY : HAVE YOU EVER DEVELOPED ANY TYPE OF REACTION DURING OR AFTER DENTAL APPOINTMENT, VAGINAL/RECTAL EXAMINATION, SURGICAL PROCEDURE, OR ANY OTHER EXPOSURE?NO LATEX RISK : HAVE YOU EVER HAD ANY DIFFICULTY BREATHING OR HIVES AFTER EATING OR HANDLING ANY FRUITS, OR VEGETABLES; SUCH KIWI, BANANAS, STONE FRUITS, OR CHESTNUTSNO LATEX RISK : DO YOU HAVE A PREVIOUS PERSONAL HISTORY OF MORE THAN NINE SURGERIES, SPINA BIFIDA, OR REPEATED CATHERIZATIONS? NO LATEX RISK : ARE YOU FREQUENTLY EXPOSED TO LATEX PRODUCTS IN YOUR OCCUPATION?YES DATE ASKED : 04/26/2020 ALCOHOL SCREENING DID YOU HAVE A DRINK CONTAINING ALCOHOL IN THE PAST YEAR?NO POINTS0 INTERPRETATIONNEGATIVE RECREATIONAL DRUG USE DRUG USE?NO PATIENT DENIES ABUSE OR MISSUSED OF ANY MEDICATION DENIES PATIENT DENIES USE OF ANY ILLEGAL SUBSTANCE INCLUDING MARIJUANA OR COCAINE DENIES CAFFEINE CAFFEINE USE?YES HOW OFTEN AND HOW MUCH? 2/DAY SABIANIST SABIANIST NO EVANGELICAL BELIEFS THAT WOULD IMPACT HEALTH CARE. LANGUAGE LANGUAGES SPOKEN:WELSH EDUCATION LEVEL OF EDUCATION:FINISHED HIGH SCHOOL LEARNING BARRIERS / SPECIAL NEEDS BARRIERS TO LEARNING?NO HEARING IMPAIRED?NO VISION IMPAIRED?YES :CORRECTIVE LENSES COGNITIVELY IMPAIRED?NO READINESS TO LEARN?YES LEARNING PREFERENCES?YES :DEMONSTRATION/VERBAL INSTRUCTION LEARNING CAPABILITIES PRESENT?YES EMOTIONAL BARRIERS?NO SPECIAL DEVICES?NO SALES REPRESENTATIVE ADVERTISING NEEDED?NO DOMESTIC VIOLENCE DO YOU FEEL SAFE IN YOUR ENVIRONMENT?YES OCCUPATION: HEALTH CARE. DIET: REGULAR. EXERCISE: NO REGULAR EXERCISE. MARITAL STATUS: , . OTHERS AT HOME: OTHER RELATIVE. PAIN CLINIC PFS, CLERGY, PUBLIC HEALTH REFERRALS PFS REFERRAL NEEDED?NO CLERGY REFERRAL NEEDED?NO PUBLIC HEALTH REFERRAL NEEDED?NO WAS THE PROVIDER NOTIFIED OF ANY PERTINENT INFO?YES HAS THE PATIENT BEEN EDUCATED REGARDING HIS/HER PLAN OF CARE?YES HAS THE PATIENT BEEN EDUCATED REGARDING PAIN, THE RISK FOR PAIN, THE IMPORTANCE OF EFFECTIVE PAIN MANAGEMENT, AND THE PAIN ASSESSMENT PROCESS?YES ADVANCE DIRECTIVE ADVANCE DIRECTIVE DISCUSSED WITH PATIENT:YES NONE HOSPITALIZATION/MAJOR DIAGNOSTIC PROCEDURE BOWEL OBSTRUCTION 2017 MENTAL HEALTH 2009 MENTAL HEALTH 2012 SURGERIES REVIEW OF SYSTEMS CONSTITUTIONAL: ANY RECENT FEVER NO . CHILLS NO . WEIGHT CHANGE OF UNKNOWN REASONS NO . MUSCULOSKELETAL: ANY UNUSUAL JOINT PAIN OR SWELLING NOT MENTIONED NO . SYSTEMIC LUPUS NO . ANY NEUROMUSCULAR DISORDER NOT MENTIONED NO . LYME DISEASE NO . GASTROENTEROLOGY: ANY NEW CHANGE IN BOWEL CONTROL? NO . HISTORY OF LIVER DISORDER NOT MENTIONED NO . HISTORY OF UNUSUAL ABDOMINAL PAIN OR CRAMPING NOT MENTIONED NO . NO CONSTIPATION. GENITOURINARY: ANY NEW CHANGE IN BLADDER CONTROL? NO . ANY RENAL/KIDNEY CONDITON NOT MENTIONED NO . NEUROLOGY: HISTORY OF TBI NOT MENTIONED NO . OTHER NEW NUMBNESS OR PAIN PATTERNS NOT MENTIONED NO . NEW ONSET DIZZINESS OR NEUROLOGICAL CHANGES NOT MENTIONED NO . HISTORY OF SEVERE HEADACHES NOT MENTIONED NO . HISTORY OF STROKE OR NEUROLOGICAL DISORDER NOT MENTIONED NO . CARDIOLOGY: HEART SURGERY NO . CONGESTIVE HEART FAILURE/FLUID OVERLOAD NOT MENTIONED NO . HISTORY OF CHEST PAIN,IRREGULAR HEART BEAT NOT MENTIONED NO . RESPIRATORY: SHORTNESS OF BREATH ON EXERTION, WHEEZES, UNUSUAL COUGH NOT MENTIONED NO . ENDOCRINOLOGY: ADRENAL GLAND OR THYROID DISORDERS NOT MENTIONED NO . UNUSUAL URINATION, DIZZINESS OR LETHARGY NOT MENTIONED NO . VITAL SIGNS WT 184.2 LBS, HT 40 IN, BMI 80.93 INDEX, BP 120/67 MM HG, HR 96 /MIN, RR 18 /MIN, TEMP 98.0 F, OXYGEN SAT % 98%, SAFE IN ENV? (Y/N) Y, NA INITIALS AW 1112, REVIEWED BY: EM. EXAMINATION GENERAL EXAMINATION: GENERALNO ACUTE DISTRESS, WELL NOURISHED AND HYDRATED. PSYCHAPPROPRIATE MOOD AND AFFECT . NECK:POINT TENDER ALONG CERVICAL SPINE, SURROUNDING SKIN SHOWS NO ERYTHEMA, ECCHYMOSIS, INCREASED WARMTH, AND/OR SKIN ERUPTIONS NOTED. . LUNGS:CLEAR TO AUSCULTATION BILATERALLY, NO WHEEZES, RHONCHI, RALES. HEART:NO MURMURS, REGULAR RATE AND RHYTHM. BACK:TENDER ALONG LUMBAR SPINE, SURROUNDING SKIN SHOWS NO ERYTHEMA, ECCHYMOSIS, INCREASED WARMTH, AND/OR SKIN ERUPTIONS NOTED. . ASSESSMENTS CERVICALGIA - M54.2 (PRIMARY) LOW BACK PAIN - M54.5 TREATMENT CERVICALGIA START [facility] FILM, 75 MCG, 1 FILM TO THE GUM, BUCALLY, EVERY 12 HRS, 30 DAYS, 60 NOTES: 39-YEAR-OLD MALE IN FOR INITIAL PAIN CONSULT. GIVEN PRESENTING SYMPTOMS RECOMMEND [facility] WITH FOLLOW-UP IN ONE MONTH TO DETERMINE EFFICACY OF TREATMENT. PATIENT HAS EXPRESSED UNDERSTANDING OF AND WAS IN AGREEMENT WITH TREATMENT PLAN. GIVEN TIME TO ASK QUESTIONS AND EXPRESS CONCERNS. OTHERS NOTES: PRE NEW PATIENT VISIT PHONE CALL COMPLETED WITH PATIENT 04/26/2020 Devika ROSS RN. DISPOSITION & COMMUNICATION FOLLOW UP 4 WEEKS (REASON: BACK AND NECK PAIN) ELECTRONICALLY SIGNED BY LV PALOMO ON 04/28/2020 AT 01:24 PM EST DISCLAIMER : THIS IS A VISIT SUMMARY EXTRACTED FROM THE [employer] ([employer] CHART. IT IS NOT A COPY OF THE [employer] PROGRESS NOTE. SERGEI
== END ==
LOC: M PAIN 11:00
PROVIDERS: ATTEND Family Medicine
DX: M54.2 Cervicalgia (principal); M54.5 Low back pain; I10 Essential (primary) hypertension; J45.909 Unspecified asthma, uncomplicated; F32.9 Major depressive disorder, single episode, unspecified; F41.9 Anxiety disorder, unspecified; K21.9 Gastro-esophageal reflux disease without esophagitis; Q77.4 Achondroplasia; E55.9 Vitamin D deficiency, unspecified; Z79.899 Other long term (current) drug therapy; Z88.0 Allergy status to penicillin; Z88.5 Allergy status to narcotic agent; Z88.8 Allergy status to other drugs, medicaments and biological substances

== ENCOUNTER → 2020-05-25 | Outpatient (CLI) | payer BC ==
--- NOTE | 2020-05-27 00:22 | ECWPNPC ---
PATIENT NAME: PEREZ NEWMAN : 1980 GENDER: MALE VISIT DATE: 05/25/2020 DISCHARGE DATE: 05/25/20 1200 VISIT LOCKED DATE TIME: PHYSICIAN: RENETTA DUONG RESOURCE: RENETTA DUONG REASON FOR APPOINTMENT 1. BACK AND NECK PAIN HISTORY OF PRESENT ILLNESS GENERAL: - 40-YEAR-OLD MALE IN FOR CHRONIC PAIN FOLLOW-UP. AT LAST CLINIC VISIT PATIENT WAS STARTED ON BELBUCA AND HE ADMITS TODAY THAT THIS WAS NOT BENEFICIAL. HE FURTHER STATES THAT EVERY TIME HE PICKS UP THE PRESCRIPTION IT IS $30 FOR A CO-PAY. HE RATES HIS PAIN CURRENTLY AT AN 8 OUT OF 10 AND DESCRIBES IT ACHING AND SHARP. FALL RISK SCREENING: SCREENING :NO FALLS REPORTED IN THE LAST YEAR PAIN SCREENING: PATIENT HAS A COMPLAINT OF ACUTE OR CHRONIC PAIN :YES LOCATION OF PAIN:NECK, LOW BACK INTENSITY OF PAIN (SCALE OF 1 TO 10):8 WHAT DOES YOUR PAIN FEEL LIKE:ACHING, SHARP DURATION:CONTINOUS, CONSTANT, ALL DAY PAIN IS INCREASED BY:ACTIVITIES, PROLONGED STANDING PAIN IS DECREASED BY:OTHERS HEAT AND ICE NURSING NOTE: -. PAIN CENTER INTAKE QUESTIONS: DO YOU HAVE A HISTORY OF MRSA? :NO DO YOU TAKE A BLOOD THINNERS? :NO DO YOU HAVE ANY BLEEDING DISORDERS? :NO ANY NEW NUMBNESS OR WEAKNESS IN YOUR LEGS OR ARMS? :NO ANY PACEMAKER,DEFIBRILLATOR, OR DORSAL COLUMN STIMULATOR? :NO DO YOU HAVE ANY RASHES OR OPEN SORES? :NO ARE YOU ALLERGIC TO IV DYE? :NO ARE YOU DIABETIC? :NO ANY NEW PROBLEMS WITH YOUR MEDICATIONS? :NO HAVE YOU RECEIVED A VACCINE IN THE PAST 30 DAYS? :NO DO YOU PLAN TO RECEIVE A VACCINE IN THE NEXT 21 DAYS? :NO DO YOU NEED ANY PRESCRIPTION? :NO DO YOU TAKE ANY IMMUNOSUPPRESSIVE MEDICATIONS? :NO IS THERE A CHANCE YOU COULD BE ? :NO ARE YOU BREAST FEEDING? :NO CURRENT MEDICATIONS TAKING VITAMIN B12 100 MCG TABLET DIRECTED ORALLY ONE TAB BY MOUTH 3 TIMES WEEKLY TAKING ALBUTEROL SULFATE (2.5 MG/3ML) 0.083% NEBULIZATION SOLUTION 3 ML NEEDED INHALATION EVERY 8 HOURS NEEDED TAKING ALBUTEROL SULFATE HFA 108 (90 BASE) MCG/ACT AEROSOL SOLUTION 1 PUFF NEEDED INHALATION EVERY 6 HOURS NEEDED TAKING SERTRALINE HCL 100 MG TABLET 1.5 TABS ORALLY ONCE A DAY TAKING FLUTICASONE PROPIONATE 50 MCG/ACT SUSPENSION 1 SPRAY IN EACH NOSTRIL NASALLY ONCE A DAY TAKING COLACE 100 MG CAPSULE 1 CAPSULE NEEDED ORALLY ONCE A DAY, NOTES: UP TO 4 TIMES A DAY PRN TAKING LEVOCETIRIZINE DIHYDROCHLORIDE 5 MG TABLET 1 TABLET IN THE EVENING ORALLY ONCE A DAY TAKING PRAZOSIN HCL 2 MG CAPSULE 1 CAPSULE AT BEDTIME ORALLY ONCE A DAY TAKING BUSPIRONE HCL 15 MG TABLET 1 TABLET ORALLY THREE TIMES DAILY TAKING LITHIUM CARBONATE 300 MG CAPSULE 1 CAP ORALLY BID TAKING REMERON 15 MG TABLET 1/2 TAB ORALLY BEFORE BEDTIME TAKING BIOTIN MAXIMUM STRENGTH 5000 MCG CAPSULE 1 CAPSULE ORALLY ONCE A DAY TAKING VITAMIN D3 MAXIMUM STRENGTH 125 MCG (5000 UT) CAPSULE DIRECTED ORALLY DAILY TAKING LOSARTAN POTASSIUM 50 MG TABLET 1 TABLET ORALLY ONCE A DAY TAKING HYDROCHLOROTHIAZIDE 12.5 MG CAPSULE 1 CAPSULE IN THE MORNING ORALLY ONCE A DAY TAKING BELBUCA 75 MCG FILM 1 FILM TO THE GUM BUCALLY EVERY 12 HRS NOT-TAKING TRAMADOL HCL 50 MG TABLET 1 TABLET NEEDED ORALLY THREE TIMES DAILY NEEDED NOT-TAKING PERCOCET 5-325 MG TABLET 1 TABLET NEEDED ORALLY EVERY 6 HRS NOT-TAKING GABAPENTIN 600 MG TABLET 1 TABLET ORALLY THREE TIMES DAILY MEDICATION LIST REVIEWED AND RECONCILED WITH THE PATIENT PAST MEDICAL HISTORY HYPERTENSION ASTHMA DEPRESSION/ANXIETY/MOOD DISORDER GERD CHRONIC NECK & BACK PAIN SEASONAL ALLERGIES ACONDROPLASIA ( DWARFISM) ALLERGIC RHINITIS VITAMIN D DEFICIENCY CERVICAL DISC DISPLACEMENT DISC DISPLACEMENT- LUMBAR ALLERGIES PENICILLIN: DYSPNEA - ALLERGY DARVOCET-N 100: RASH - ALLERGY SOMA: RASH - ALLERGY WELLBUTRIN: RASH - ALLERGY VICODIN: RASH - ALLERGY SURGICAL HISTORY GASTRIC BYPASS 2008 HERNIA REPAIRS ( MULTIPLE) 2008, 2016, 2017 CHOLECYSTECTOMY 2009 TONSILS, ADENOIDS, TUBE INSERTION 1988 BACK SURGERY 2003 HERNIA REPAIR WITH MESH INSERTION 2017 TUMMY TUCK, THIGH REDUCTION 2009 FAMILY HISTORY FATHER: ALIVE, DIAGNOSED WITH HYPERTENSION MOTHER: ALIVE, HYPERTENSION, DIABETES 1 BROTHER(S) , 1 SISTER(S) - HEALTHY. MOTHER- HYPERTENSION, DIABETESFATHER- HYPERTENSION, HEART DISEASE. SOCIAL HISTORY GENERAL: TOBACCO USE ARE YOU A:NONSMOKER LATEX QUESTIONNAIRE LATEX ALLERGY : HAVE YOU EVER DEVELOPED ANY TYPE OF REACTION AFTER HANDLING LATEX PRODUCTS SUCH RUBBER GLOVES, CONDOMS, DIAPHRAGMS, BALLOONS, SOCKS, OR UNDERWEAR?NO LATEX ALLERGY : HAVE YOU EVER DEVELOPED ANY TYPE OF REACTION DURING OR AFTER DENTAL APPOINTMENT, VAGINAL/RECTAL EXAMINATION, SURGICAL PROCEDURE, OR ANY OTHER EXPOSURE?NO LATEX RISK : HAVE YOU EVER HAD ANY DIFFICULTY BREATHING OR HIVES AFTER EATING OR HANDLING ANY FRUITS, OR VEGETABLES; SUCH KIWI, BANANAS, STONE FRUITS, OR CHESTNUTSNO LATEX RISK : DO YOU HAVE A PREVIOUS PERSONAL HISTORY OF MORE THAN NINE SURGERIES, SPINA BIFIDA, OR REPEATED CATHERIZATIONS? NO LATEX RISK : ARE YOU FREQUENTLY EXPOSED TO LATEX PRODUCTS IN YOUR OCCUPATION?YES DATE ASKED : 05/25/2020 ALCOHOL SCREENING DID YOU HAVE A DRINK CONTAINING ALCOHOL IN THE PAST YEAR?NO POINTS0 INTERPRETATIONNEGATIVE RECREATIONAL DRUG USE DRUG USE?NO PATIENT DENIES ABUSE OR MISSUSED OF ANY MEDICATION DENIES PATIENT DENIES USE OF ANY ILLEGAL SUBSTANCE INCLUDING MARIJUANA OR COCAINE DENIES CAFFEINE CAFFEINE USE?YES HOW OFTEN AND HOW MUCH? 2/DAY MANDAEISM MANDAEISM NO MU-ISM BELIEFS THAT WOULD IMPACT HEALTH CARE. LANGUAGE LANGUAGES SPOKEN:KYRGYZ EDUCATION LEVEL OF EDUCATION:FINISHED HIGH SCHOOL LEARNING BARRIERS / SPECIAL NEEDS BARRIERS TO LEARNING?NO HEARING IMPAIRED?NO VISION IMPAIRED?YES :CORRECTIVE LENSES COGNITIVELY IMPAIRED?NO READINESS TO LEARN?YES LEARNING PREFERENCES?YES :DEMONSTRATION/VERBAL INSTRUCTION LEARNING CAPABILITIES PRESENT?YES EMOTIONAL BARRIERS?NO SPECIAL DEVICES?NO LIVESTOCK AUCTIONEER NEEDED?NO DOMESTIC VIOLENCE DO YOU FEEL SAFE IN YOUR ENVIRONMENT?YES OCCUPATION: HEALTH CARE. DIET: REGULAR. EXERCISE: NO REGULAR EXERCISE. MARITAL STATUS: , . OTHERS AT HOME: OTHER RELATIVE. PAIN CLINIC PFS, CLERGY, PUBLIC HEALTH REFERRALS PFS REFERRAL NEEDED?NO CLERGY REFERRAL NEEDED?NO PUBLIC HEALTH REFERRAL NEEDED?NO WAS THE PROVIDER NOTIFIED OF ANY PERTINENT INFO?YES HAS THE PATIENT BEEN EDUCATED REGARDING HIS/HER PLAN OF CARE?YES HAS THE PATIENT BEEN EDUCATED REGARDING PAIN, THE RISK FOR PAIN, THE IMPORTANCE OF EFFECTIVE PAIN MANAGEMENT, AND THE PAIN ASSESSMENT PROCESS?YES ADVANCE DIRECTIVE ADVANCE DIRECTIVE DISCUSSED WITH PATIENT:YES NONE HOSPITALIZATION/MAJOR DIAGNOSTIC PROCEDURE BOWEL OBSTRUCTION 2017 MENTAL HEALTH 2009 MENTAL HEALTH 2012 SURGERIES REVIEW OF SYSTEMS CONSTITUTIONAL: ANY RECENT FEVER NO . CHILLS NO . WEIGHT CHANGE OF UNKNOWN REASONS NO . GASTROENTEROLOGY: NEW UNEXPLAINABLE CHANGES IN BOWEL CONTROL NO . CONSTIPATION NO . GENITOURINARY: ANY NEW CHANGE IN BLADDER CONTROL? NO . NEUROLOGY: NEW ONSET DIZZINESS OR NEUROLOGICAL CHANGES NOT MENTIONED NO . NEW NUMBNESS OR PAIN PATTERNS NOT MENTIONED AND PERTINENT TO TODAY'S VISIT NO . CARDIOLOGY: NEW CHEST PRESSURE NO . NEW CHEST PAIN NO . RESPIRATORY: UNEXPLAINABLE COUGH NO . NEW SHORTNESS OF BREATH NO . VITAL SIGNS WT 187 LBS, HT 40 IN, BMI 82.16 INDEX, BP 141/69 MM HG, REPEAT BP 126/82 MM HG, HR 69 /MIN, RR 18 /MIN, TEMP 99.2 F, OXYGEN SAT % 97%, NA INITIALS 11:23T.SUZIE AADMS. EXAMINATION GENERAL EXAMINATION: GENERALNO ACUTE DISTRESS, WELL NOURISHED AND HYDRATED. PSYCHAPPROPRIATE MOOD AND AFFECT . LUNGS:CLEAR TO AUSCULTATION BILATERALLY, NO WHEEZES, RHONCHI, RALES. HEART:NO MURMURS, REGULAR RATE AND RHYTHM. ASSESSMENTS CERVICALGIA - M54.2 (PRIMARY) TREATMENT CERVICALGIA STOP BELBUCA FILM, 75 MCG, 1 FILM TO THE GUM, BUCALLY, EVERY 12 HRS START PERCOCET TABLET, 5-325 MG, 1 TABLET NEEDED, ORALLY, EVERY 12 HRS PRN PAIN, 30 DAYS, 60 NOTES: 40-YEAR-OLD MALE IN FOR CHRONIC PAIN FOLLOW-UP. GIVEN PRESENTING SYMPTOMS RECOMMEND STOPPING BELBUCA AND STARTING PERCOCET 5/325 MG TWICE A DAY NEEDED FOR PAIN WITH FOLLOW-UP IN 2 MONTHS TO DETERMINE EFFICACY TREATMENT. PATIENT HAS EXPRESSED UNDERSTANDING OF AND WAS IN AGREEMENT WITH TREATMENT PLAN. GIVEN TIME TO ASK QUESTIONS AND EXPRESS CONCERNS. ISTOP REGISTRY REVIEWED AND DEMONSTRATES COMPLLIANCE. (REF # [id number] ) BRINGS IN MEDICATIONS WHICH IS APPROPRIATE FOR WHAT WAS DISPENSED. RECENT URINE TOXICOLOGY REVIEWED. NO UNAUTHORIZED MEDICATIONS. NO ILLICIT SUBSTANCES AND PRESCRIBED MEDICATIONS WERE PRESENT. , PINTED INFORMATION ON NEW MEDICATION EDITH ADAMS. PROCEDURE CODES FA211 ESTABILISHED PATIENT [facility] CHARGE DISPOSITION & COMMUNICATION FOLLOW UP 2 MONTHS (REASON: CERVICALGIA) ELECTRONICALLY SIGNED BY LV PALOMO ON 05/26/2020 AT 02:03 PM EST DISCLAIMER : THIS IS A VISIT SUMMARY EXTRACTED FROM THE [employer] CHART. IT IS NOT A COPY OF THE [employer] PROGRESS NOTE. SERGEI
== END ==
LOC: M PAIN 11:00
PROVIDERS: ATTEND Family Medicine
DX: M54.2 Cervicalgia (principal); G89.29 Other chronic pain; J45.909 Unspecified asthma, uncomplicated; E55.9 Vitamin D deficiency, unspecified; Z86.59 Personal history of other mental and behavioral disorders; Z98.84 Bariatric surgery status; Z88.0 Allergy status to penicillin; Z88.5 Allergy status to narcotic agent; Z88.8 Allergy status to other drugs, medicaments and biological substances; E66.01 Morbid (severe) obesity due to excess calories; Z68.45 Body mass index [BMI] 70 or greater, adult; Z79.891 Long term (current) use of opiate analgesic; Z79.899 Other long term (current) drug therapy

== ENCOUNTER → 2020-07-22 | Outpatient (CLI) | payer BC ==
--- NOTE | 2020-07-27 06:31 | ECWPNPC ---
PATIENT NAME: PEREZ NEWMAN : 1980 GENDER: MALE VISIT DATE: 07/22/2020 DISCHARGE DATE: 07/22/20 1448 VISIT LOCKED DATE TIME: PHYSICIAN: RENETTA DUONG RESOURCE: RENETTA DUONG REASON FOR APPOINTMENT 1. CERVICALGIA HISTORY OF PRESENT ILLNESS GENERAL: 40-YEAR-OLD MALE IN FOR CHRONIC PAIN FOLLOW-UP. HE RATES HIS PAIN CURRENTLY AT AN 8 OUT OF 10 AND DESCRIBES IT ACHING, SHARP, STABBING, AND THROBBING. HE DOES FEEL THAT HIS MEDICATION IS HELPFUL HOWEVER IT IS NOT COVERING HER THROUGHOUT THE DAY. FALL RISK SCREENING: SCREENING : NO FALLS REPORTED IN THE LAST YEAR , : NO FALLS REPORTED IN THE LAST YEAR. PAIN SCREENING: PATIENT HAS A COMPLAINT OF ACUTE OR CHRONIC PAIN :YES LOCATION OF PAIN:NECK, LOW BACK INTENSITY OF PAIN (SCALE OF 1 TO 10):8 WHAT DOES YOUR PAIN FEEL LIKE:ACHING, SHARP, STABBING, THROBBING DURATION:CONTINOUS, CONSTANT, ALL DAY PAIN IS INCREASED BY:ACTIVITIES PAIN IS DECREASED BY:USE OF PAIN MEDICATIONS NURSING NOTE: - -. PAIN CENTER INTAKE QUESTIONS: DO YOU HAVE A HISTORY OF MRSA? :NO DO YOU TAKE A BLOOD THINNERS? :NO DO YOU HAVE ANY BLEEDING DISORDERS? :NO ANY NEW NUMBNESS OR WEAKNESS IN YOUR LEGS OR ARMS? :YES BOTH ARMS ANY PACEMAKER,DEFIBRILLATOR, OR DORSAL COLUMN STIMULATOR? :NO DO YOU HAVE ANY RASHES OR OPEN SORES? :NO ARE YOU ALLERGIC TO IV DYE? :NO ARE YOU DIABETIC? :NO ANY NEW PROBLEMS WITH YOUR MEDICATIONS? :NO HAVE YOU RECEIVED A VACCINE IN THE PAST 30 DAYS? :YES IF SO WHAT VACCINE AND WHEN? 1ST COVID 07/06/2020 DO YOU PLAN TO RECEIVE A VACCINE IN THE NEXT 21 DAYS? :YES IF SO WHAT VACCINE AND WHEN? 2ND COVID 08/03/2020 DO YOU NEED ANY PRESCRIPTION? :NO DO YOU TAKE ANY IMMUNOSUPPRESSIVE MEDICATIONS? :NO DO YOU HAVE ANY KIDNEY OR LIVER DISEASE? :NO IS THERE A CHANCE YOU COULD BE ? :NO ARE YOU BREAST FEEDING? :NO CURRENT MEDICATIONS TAKING VITAMIN B12 100 MCG TABLET DIRECTED ORALLY ONE TAB BY MOUTH 3 TIMES WEEKLY TAKING ALBUTEROL SULFATE (2.5 MG/3ML) 0.083% NEBULIZATION SOLUTION 3 ML NEEDED INHALATION EVERY 8 HOURS NEEDED TAKING ALBUTEROL SULFATE HFA 108 (90 BASE) MCG/ACT AEROSOL SOLUTION 1 PUFF NEEDED INHALATION EVERY 6 HOURS NEEDED TAKING SERTRALINE HCL 100 MG TABLET 2 TABS ORALLY ONCE A DAY TAKING FLUTICASONE PROPIONATE 50 MCG/ACT SUSPENSION 1 SPRAY IN EACH NOSTRIL NASALLY ONCE A DAY TAKING COLACE 100 MG CAPSULE 1 CAPSULE NEEDED ORALLY ONCE A DAY TAKING LEVOCETIRIZINE DIHYDROCHLORIDE 5 MG TABLET 1 TABLET IN THE EVENING ORALLY ONCE A DAY TAKING PRAZOSIN HCL 2 MG CAPSULE 1 CAPSULE AT BEDTIME ORALLY ONCE A DAY TAKING BUSPIRONE HCL 15 MG TABLET 1 TABLET ORALLY FOUR TIMES DAILY TAKING LITHIUM CARBONATE 300 MG CAPSULE 2 CAP ORALLY BID TAKING REMERON 15 MG TABLET 1/2 TAB ORALLY BEFORE BEDTIME TAKING BIOTIN MAXIMUM STRENGTH 5000 MCG CAPSULE 1 CAPSULE ORALLY ONCE A DAY TAKING VITAMIN D3 MAXIMUM STRENGTH 125 MCG (5000 UT) CAPSULE DIRECTED ORALLY DAILY TAKING LOSARTAN POTASSIUM 50 MG TABLET 1 TABLET ORALLY ONCE A DAY TAKING HYDROCHLOROTHIAZIDE 12.5 MG CAPSULE 1 CAPSULE IN THE MORNING ORALLY ONCE A DAY TAKING PERCOCET 5-325 MG TABLET 1 TABLET NEEDED ORALLY EVERY 12 HRS PRN PAIN NOT-TAKING TRAMADOL HCL 50 MG TABLET 1 TABLET NEEDED ORALLY THREE TIMES DAILY NEEDED NOT-TAKING PERCOCET 5-325 MG TABLET 1 TABLET NEEDED ORALLY EVERY 6 HRS NOT-TAKING GABAPENTIN 600 MG TABLET 1 TABLET ORALLY THREE TIMES DAILY MEDICATION LIST REVIEWED AND RECONCILED WITH THE PATIENT PAST MEDICAL HISTORY HYPERTENSION ASTHMA DEPRESSION/ANXIETY/MOOD DISORDER GERD CHRONIC NECK & BACK PAIN SEASONAL ALLERGIES ACONDROPLASIA ( DWARFISM) ALLERGIC RHINITIS VITAMIN D DEFICIENCY CERVICAL DISC DISPLACEMENT DISC DISPLACEMENT- LUMBAR ALLERGIES PENICILLIN: DYSPNEA - ALLERGY DARVOCET-N 100: RASH - ALLERGY SOMA: RASH - ALLERGY WELLBUTRIN: RASH - ALLERGY VICODIN: RASH - ALLERGY SOCIAL HISTORY GENERAL: TOBACCO USE ARE YOU A:NONSMOKER LATEX QUESTIONNAIRE LATEX ALLERGY : HAVE YOU EVER DEVELOPED ANY TYPE OF REACTION AFTER HANDLING LATEX PRODUCTS SUCH RUBBER GLOVES, CONDOMS, DIAPHRAGMS, BALLOONS, SOCKS, OR UNDERWEAR?NO LATEX ALLERGY : HAVE YOU EVER DEVELOPED ANY TYPE OF REACTION DURING OR AFTER DENTAL APPOINTMENT, VAGINAL/RECTAL EXAMINATION, SURGICAL PROCEDURE, OR ANY OTHER EXPOSURE?NO LATEX RISK : HAVE YOU EVER HAD ANY DIFFICULTY BREATHING OR HIVES AFTER EATING OR HANDLING ANY FRUITS, OR VEGETABLES; SUCH KIWI, BANANAS, STONE FRUITS, OR CHESTNUTSNO LATEX RISK : DO YOU HAVE A PREVIOUS PERSONAL HISTORY OF MORE THAN NINE SURGERIES, SPINA BIFIDA, OR REPEATED CATHERIZATIONS? NO LATEX RISK : ARE YOU FREQUENTLY EXPOSED TO LATEX PRODUCTS IN YOUR OCCUPATION?YES DATE ASKED : 07/22/2020 ALCOHOL USE: NO. ALCOHOL SCREENING DID YOU HAVE A DRINK CONTAINING ALCOHOL IN THE PAST YEAR?NO POINTS0 INTERPRETATIONNEGATIVE RECREATIONAL DRUG USE DRUG USE?NO PATIENT DENIES ABUSE OR MISSUSED OF ANY MEDICATION DENIES PATIENT DENIES USE OF ANY ILLEGAL SUBSTANCE INCLUDING MARIJUANA OR COCAINE DENIES CAFFEINE CAFFEINE USE?YES HOW OFTEN AND HOW MUCH? 2/DAY GNOSTICISM GNOSTICISM NO LATTER-DAY BELIEFS THAT WOULD IMPACT HEALTH CARE. LANGUAGE LANGUAGES SPOKEN:[place] EDUCATION LEVEL OF EDUCATION:FINISHED HIGH SCHOOL LEARNING BARRIERS / SPECIAL NEEDS BARRIERS TO LEARNING?NO HEARING IMPAIRED?NO VISION IMPAIRED?YES :CORRECTIVE LENSES COGNITIVELY IMPAIRED?NO READINESS TO LEARN?YES LEARNING PREFERENCES?YES :DEMONSTRATION/VERBAL INSTRUCTION LEARNING CAPABILITIES PRESENT?YES EMOTIONAL BARRIERS?NO SPECIAL DEVICES?NO FLEA MARKET SELLER NEEDED?NO DOMESTIC VIOLENCE DO YOU FEEL SAFE IN YOUR ENVIRONMENT?YES OCCUPATION: HEALTH CARE. DIET: REGULAR. EXERCISE: NO REGULAR EXERCISE. MARITAL STATUS: , . OTHERS AT HOME: OTHER RELATIVE. - PFS REFERRAL NEEDED?NO CLERGY REFERRAL NEEDED?NO PUBLIC HEALTH REFERRAL NEEDED?NO WAS THE PROVIDER NOTIFIED OF ANY PERTINENT INFO?YES HAS THE PATIENT BEEN EDUCATED REGARDING HIS/HER PLAN OF CARE?YES HAS THE PATIENT BEEN EDUCATED REGARDING PAIN, THE RISK FOR PAIN, THE IMPORTANCE OF EFFECTIVE PAIN MANAGEMENT, AND THE PAIN ASSESSMENT PROCESS?YES ADVANCE DIRECTIVE ADVANCE DIRECTIVE DISCUSSED WITH PATIENT:YES NONE REVIEW OF SYSTEMS CONSTITUTIONAL: ANY RECENT FEVER NO . CHILLS NO . WEIGHT CHANGE OF UNKNOWN REASONS NO . GASTROENTEROLOGY: NEW UNEXPLAINABLE CHANGES IN BOWEL CONTROL NO . CONSTIPATION NO . GENITOURINARY: ANY NEW CHANGE IN BLADDER CONTROL? NO . NEUROLOGY: NEW ONSET DIZZINESS OR NEUROLOGICAL CHANGES NOT MENTIONED NO . NEW NUMBNESS OR PAIN PATTERNS NOT MENTIONED AND PERTINENT TO TODAY'S VISIT NO . CARDIOLOGY: NEW CHEST PRESSURE NO . PATIENT DENIES NO . RESPIRATORY: UNEXPLAINABLE COUGH NO . NEW SHORTNESS OF BREATH NO . VITAL SIGNS WT 189 LBS, HT 40 IN, BMI 83.04 INDEX, BP 139/81 MM HG, HR 73 /MIN, RR 20 /MIN, TEMP 98.1 F, OXYGEN SAT % 97%, SAFE IN ENV? (Y/N) YES, NA INITIALS TX 14:35T.SUZIE ADAMS. EXAMINATION GENERAL EXAMINATION: GENERALNO ACUTE DISTRESS, WELL NOURISHED AND HYDRATED. PSYCHAPPROPRIATE MOOD AND AFFECT . LUNGS:CLEAR TO AUSCULTATION BILATERALLY, NO WHEEZES, RHONCHI, RALES. HEART:NO MURMURS, REGULAR RATE AND RHYTHM. ASSESSMENTS CERVICALGIA - M54.2 (PRIMARY) TREATMENT CERVICALGIA REFILL PERCOCET TABLET, 5-325 MG, 1 TABLET NEEDED, ORALLY, EVERY 8 HRS PRN PAIN MDD 3, 30 DAYS, 90 NOTES: 40-YEAR-OLD MALE IN FOR CHRONIC PAIN FOLLOW-UP. GIVEN PRESENTING SYMPTOMS RECOMMEND INCREASING PERCOCET TO 3 TIMES A DAY DOSING WITH FOLLOW-UP IN 3 MONTHS. PATIENT HAS EXPRESSED UNDERSTANDING OF AND WAS IN AGREEMENT WITH TREATMENT PLAN. GIVEN TIME TO ASK QUESTIONS AND EXPRESS CONCERNS. , ISTOP REGISTRY REVIEWED AND DEMONSTRATES COMPLLIANCE. (REF # ) BRINGS IN MEDICATIONS WHICH IS APPROPRIATE FOR WHAT WAS DISPENSED. RECENT URINE TOXICOLOGY REVIEWED. NO UNAUTHORIZED MEDICATIONS. NO ILLICIT SUBSTANCES AND PRESCRIBED MEDICATIONS WERE PRESENT. PROCEDURE CODES FA211 ESTABILISHED PATIENT [facility] CHARGE DISPOSITION & COMMUNICATION FOLLOW UP 3 MONTHS (REASON: CERVICALGIA ) ELECTRONICALLY SIGNED BY LV PAOLMO ON 07/26/2020 AT 08:34 AM EDT DISCLAIMER : THIS IS A VISIT SUMMARY EXTRACTED FROM THE [employer] CHART. IT IS NOT A COPY OF THE [employer] PROGRESS NOTE. SERGEI
== END ==
LOC: M PAIN 14:30
PROVIDERS: ATTEND Family Medicine
DX: M54.2 Cervicalgia (principal); I10 Essential (primary) hypertension; J45.909 Unspecified asthma, uncomplicated; F32.9 Major depressive disorder, single episode, unspecified; F41.9 Anxiety disorder, unspecified; K21.9 Gastro-esophageal reflux disease without esophagitis; E55.9 Vitamin D deficiency, unspecified; Z79.891 Long term (current) use of opiate analgesic; Z79.899 Other long term (current) drug therapy; Z88.0 Allergy status to penicillin; Z88.8 Allergy status to other drugs, medicaments and biological substances; Z88.5 Allergy status to narcotic agent

== ENCOUNTER → 2020-11-11 | Outpatient (CLI) | payer OTHER ==
--- NOTE | 2020-11-15 23:25 | ECWPNPC ---
PATIENT NAME: PEREZ NEWMAN : 1980 GENDER: MALE VISIT DATE: 11/11/2020 DISCHARGE DATE: 11/11/20 1136 VISIT LOCKED DATE TIME: PHYSICIAN: RENETTA DUONG RESOURCE: RENETTA DUONG REASON FOR APPOINTMENT 1. CERVICALGIA HISTORY OF PRESENT ILLNESS DEPRESSION SCREENING: PHQ-2 (2015 EDITION) LITTLE INTEREST OR PLEASURE IN DOING THINGS?SEVERAL DAYS FEELING DOWN, DEPRESSED, OR HOPELESS?NOT AT ALL TOTAL SCORE1 GENERAL: HPI 40-YEAR-OLD MALE IN FOR CHRONIC PAIN FOLLOW-UP. HE RATES HIS PAIN CURRENTLY AT A 9 OUT OF 10. PATIENT DOES FEEL HIS MEDICATIONS ARE HELPFUL BUT WOULD LIKE TO DISCUSS THE ADDITION OF A MUSCLE RELAXER TO HELP ALLEVIATE MORE OF HIS PAIN SYMPTOMS.. -. FALL RISK SCREENING: SCREENING THREE FALLS REPORTED IN THE LAST YEAR WITH INJURY. PATIENT DENIES SEEKING IMMEDIATE MEDICAL TREATMENT.. PAIN SCREENING: PATIENT HAS A COMPLAINT OF ACUTE OR CHRONIC PAIN :YES LOCATION OF PAIN:NECK INTENSITY OF PAIN (SCALE OF 1 TO 10):9 WHAT DOES YOUR PAIN FEEL LIKE:ACHING, BURNING, CONTINOUS, SHARP, STABBING, TENDER, THROBBING, SORE, SHOOTING DURATION:CONTINOUS, CONSTANT, AWAKENS FROM SLEEP PAIN IS INCREASED BY:ACTIVITIES, PROLONGED STANDING PAIN IS DECREASED BY:USE OF PAIN MEDICATIONS, SITTING PAIN STATES THE MEDS "HELP VERY LITTLE." NURSING NOTE: -. PAIN CENTER INTAKE QUESTIONS: DO YOU HAVE A HISTORY OF MRSA? :NO DO YOU TAKE A BLOOD THINNERS? :NO DO YOU HAVE ANY BLEEDING DISORDERS? :NO ANY NEW NUMBNESS OR WEAKNESS IN YOUR LEGS OR ARMS? :NO ANY PACEMAKER,DEFIBRILLATOR, OR DORSAL COLUMN STIMULATOR? :NO DO YOU HAVE ANY RASHES OR OPEN SORES? :NO ARE YOU ALLERGIC TO IV DYE? :NO ARE YOU DIABETIC? :NO ANY NEW PROBLEMS WITH YOUR MEDICATIONS? :NO HAVE YOU RECEIVED A VACCINE IN THE PAST 30 DAYS? :NO SECOND COVID VACCINATION 08/03/2020 DO YOU PLAN TO RECEIVE A VACCINE IN THE NEXT 21 DAYS? :NO DO YOU NEED ANY PRESCRIPTION? :NO PERCOCET AND WILL DISCUSS FURTHER MEDICATION WITH PROVIDER. DO YOU TAKE ANY IMMUNOSUPPRESSIVE MEDICATIONS? :NO DO YOU HAVE ANY KIDNEY OR LIVER DISEASE? :NO IS THERE A CHANCE YOU COULD BE ? :NO ARE YOU BREAST FEEDING? :NO CURRENT MEDICATIONS TAKING VITAMIN B12 100 MCG TABLET DIRECTED ORALLY ONE TAB BY MOUTH 3 TIMES WEEKLY TAKING ALBUTEROL SULFATE (2.5 MG/3ML) 0.083% NEBULIZATION SOLUTION 3 ML NEEDED INHALATION EVERY 8 HOURS NEEDED TAKING ALBUTEROL SULFATE HFA 108 (90 BASE) MCG/ACT AEROSOL SOLUTION 1 PUFF NEEDED INHALATION EVERY 6 HOURS NEEDED TAKING SERTRALINE HCL 100 MG TABLET 2 TABS ORALLY ONCE A DAY TAKING FLUTICASONE PROPIONATE 50 MCG/ACT SUSPENSION 1 SPRAY IN EACH NOSTRIL NASALLY ONCE A DAY TAKING COLACE 100 MG CAPSULE 1 CAPSULE NEEDED ORALLY ONCE A DAY TAKING LEVOCETIRIZINE DIHYDROCHLORIDE 5 MG TABLET 1 TABLET IN THE EVENING ORALLY ONCE A DAY TAKING PRAZOSIN HCL 2 MG CAPSULE 1 CAPSULE AT BEDTIME ORALLY ONCE A DAY TAKING BUSPIRONE HCL 15 MG TABLET 1 TABLET ORALLY FOUR TIMES DAILY TAKING LITHIUM CARBONATE 300 MG CAPSULE 2 CAP ORALLY BID TAKING REMERON 15 MG TABLET 1/2 TAB ORALLY BEFORE BEDTIME TAKING BIOTIN MAXIMUM STRENGTH 5000 MCG CAPSULE 1 CAPSULE ORALLY ONCE A DAY TAKING VITAMIN D3 MAXIMUM STRENGTH 125 MCG (5000 UT) CAPSULE DIRECTED ORALLY DAILY TAKING [place]ARTAN POTASSIUM 50 MG TABLET 1 TABLET ORALLY ONCE A DAY TAKING HYDROCHLOROTHIAZIDE 12.5 MG CAPSULE 1 CAPSULE IN THE MORNING ORALLY ONCE A DAY TAKING PERCOCET 5-325 MG TABLET 1 TABLET NEEDED ORALLY EVERY 8 HRS PRN PAIN MDD 3 NOT-TAKING TRAMADOL HCL 50 MG TABLET 1 TABLET NEEDED ORALLY THREE TIMES DAILY NEEDED NOT-TAKING PERCOCET 5-325 MG TABLET 1 TABLET NEEDED ORALLY EVERY 6 HRS NOT-TAKING GABAPENTIN 600 MG TABLET 1 TABLET ORALLY THREE TIMES DAILY MEDICATION LIST REVIEWED AND RECONCILED WITH THE PATIENT PAST MEDICAL HISTORY HYPERTENSION ASTHMA DEPRESSION/ANXIETY/MOOD DISORDER GERD CHRONIC NECK & BACK PAIN SEASONAL ALLERGIES ACONDROPLASIA ( DWARFISM) ALLERGIC RHINITIS VITAMIN D DEFICIENCY CERVICAL DISC DISPLACEMENT DISC DISPLACEMENT- LUMBAR ALLERGIES PENICILLIN: DYSPNEA - ALLERGY DARVOCET-N 100: RASH - ALLERGY SOMA: RASH - ALLERGY WELLBUTRIN: RASH - ALLERGY VICODIN: RASH - ALLERGY SOCIAL HISTORY GENERAL: TOBACCO USE ARE YOU A:NONSMOKER LATEX QUESTIONNAIRE LATEX ALLERGY : HAVE YOU EVER DEVELOPED ANY TYPE OF REACTION AFTER HANDLING LATEX PRODUCTS SUCH RUBBER GLOVES, CONDOMS, DIAPHRAGMS, BALLOONS, SOCKS, OR UNDERWEAR?NO LATEX ALLERGY : HAVE YOU EVER DEVELOPED ANY TYPE OF REACTION DURING OR AFTER DENTAL APPOINTMENT, VAGINAL/RECTAL EXAMINATION, SURGICAL PROCEDURE, OR ANY OTHER EXPOSURE?NO LATEX RISK : HAVE YOU EVER HAD ANY DIFFICULTY BREATHING OR HIVES AFTER EATING OR HANDLING ANY FRUITS, OR VEGETABLES; SUCH KIWI, BANANAS, STONE FRUITS, OR CHESTNUTSNO LATEX RISK : DO YOU HAVE A PREVIOUS PERSONAL HISTORY OF MORE THAN NINE SURGERIES, SPINA BIFIDA, OR REPEATED CATHERIZATIONS? NO LATEX RISK : ARE YOU FREQUENTLY EXPOSED TO LATEX PRODUCTS IN YOUR OCCUPATION?YES DATE ASKED : 11/11/2020 ALCOHOL USE: NO. ALCOHOL SCREENING DID YOU HAVE A DRINK CONTAINING ALCOHOL IN THE PAST YEAR?NO POINTS0 INTERPRETATIONNEGATIVE RECREATIONAL DRUG USE DRUG USE?NO PATIENT DENIES ABUSE OR MISSUSED OF ANY MEDICATION DENIES PATIENT DENIES USE OF ANY ILLEGAL SUBSTANCE INCLUDING MARIJUANA OR COCAINE DENIES CAFFEINE CAFFEINE USE?YES HOW OFTEN AND HOW MUCH? 2/DAY CAODAISM CAODAISM NO CHEONDOISM BELIEFS THAT WOULD IMPACT HEALTH CARE. LANGUAGE LANGUAGES SPOKEN:[place] EDUCATION LEVEL OF EDUCATION:FINISHED HIGH SCHOOL LEARNING BARRIERS / SPECIAL NEEDS CHANGE FROM LAST VISIT?NO BARRIERS TO LEARNING?NO HEARING IMPAIRED?NO VISION IMPAIRED?YES :CORRECTIVE LENSES COGNITIVELY IMPAIRED?NO READINESS TO LEARN?YES LEARNING PREFERENCES?YES :DEMONSTRATION/VERBAL INSTRUCTION LEARNING CAPABILITIES PRESENT?YES EMOTIONAL BARRIERS?NO SPECIAL DEVICES?NO ADMINISTRATIVE REPRESENTATIVE NEEDED?NO DOMESTIC VIOLENCE DO YOU FEEL SAFE IN YOUR ENVIRONMENT?YES OCCUPATION: HEALTH CARE. DIET: REGULAR. EXERCISE: NO REGULAR EXERCISE. MARITAL STATUS: , . OTHERS AT HOME: OTHER RELATIVE. - PFS REFERRAL NEEDED?NO CLERGY REFERRAL NEEDED?NO PUBLIC HEALTH REFERRAL NEEDED?NO WAS THE PROVIDER NOTIFIED OF ANY PERTINENT INFO?YES HAS THE PATIENT BEEN EDUCATED REGARDING HIS/HER PLAN OF CARE?YES HAS THE PATIENT BEEN EDUCATED REGARDING PAIN, THE RISK FOR PAIN, THE IMPORTANCE OF EFFECTIVE PAIN MANAGEMENT, AND THE PAIN ASSESSMENT PROCESS?YES ADVANCE DIRECTIVE ADVANCE DIRECTIVE DISCUSSED WITH PATIENT:YES NONE REVIEW OF SYSTEMS CONSTITUTIONAL: ANY RECENT FEVER NO . CHILLS NO . WEIGHT CHANGE OF UNKNOWN REASONS NO . GASTROENTEROLOGY: NEW UNEXPLAINABLE CHANGES IN BOWEL CONTROL NO . CONSTIPATION NO . GENITOURINARY: ANY NEW CHANGE IN BLADDER CONTROL? NO . NEUROLOGY: NEW ONSET DIZZINESS OR NEUROLOGICAL CHANGES NOT MENTIONED NO . NEW NUMBNESS OR PAIN PATTERNS NOT MENTIONED AND PERTINENT TO TODAY'S VISIT NO . CARDIOLOGY: NEW CHEST PRESSURE NO . PATIENT DENIES NO . RESPIRATORY: UNEXPLAINABLE COUGH NO . NEW SHORTNESS OF BREATH NO . VITAL SIGNS WT 200.6 LBS, HT 40 IN, BMI 88.14 INDEX, BP 167/77 MM HG, HR 75 /MIN, RR 18 /MIN, TEMP 97.3 F, OXYGEN SAT % 100%, SAFE IN ENV? (Y/N) YES, NA INITIALS AW 1100HEIKE CROWELL MA. EXAMINATION GENERAL EXAMINATION: GENERALNO ACUTE DISTRESS, WELL NOURISHED AND HYDRATED. PSYCHAPPROPRIATE MOOD AND AFFECT . LUNGS:CLEAR TO AUSCULTATION BILATERALLY, NO WHEEZES, RHONCHI, RALES. HEART:NO MURMURS, REGULAR RATE AND RHYTHM. ASSESSMENTS CERVICALGIA - M54.2 (PRIMARY) TREATMENT CERVICALGIA START TIZANIDINE HCL TABLET, 4 MG, 1 TABLET NEEDED, ORALLY, THREE TIMES A DAY, 30 DAYS, 90 TABLET, REFILLS 2 NOTES: 40-YEAR-OLD MALE IN FOR CHRONIC PAIN FOLLOW-UP. GIVEN PRESENTING SYMPTOMS RECOMMEND STARTING TIZANIDINE 3 TIMES DAILY WITH FOLLOW-UP IN 2 MONTHS TO DETERMINE EFFICACY OF TREATMENT. PATIENT HAS EXPRESSED UNDERSTANDING OF AND WAS IN AGREEMENT WITH TREATMENT PLAN. GIVEN TIME TO ASK QUESTIONS AND EXPRESS CONCERNS. [employer] REGISTRY REVIEWED AND DEMONSTRATES COMPLLIANCE. (REF # [id number] ) BRINGS IN MEDICATIONS WHICH IS APPROPRIATE FOR WHAT WAS DISPENSED. RECENT URINE TOXICOLOGY REVIEWED. NO UNAUTHORIZED MEDICATIONS. NO ILLICIT SUBSTANCES AND PRESCRIBED MEDICATIONS WERE PRESENT. CLINICAL NOTES: TIZANIDINE INFORMATION PRINTED AND PROVIDED TO PATIENT. PATIENT VERBALIZED AN UNDERSTANDING. HEIKE CROWELL MA. PROCEDURE CODES [id number] ESTABILISHED PATIENT [facility] FACILITY CHARGE DISPOSITION & COMMUNICATION FOLLOW UP 2 MONTHS (REASON: NEW MED) ELECTRONICALLY SIGNED BY LV PALOMO ON 11/15/2020 AT 08:35 AM EDT DISCLAIMER : THIS IS A VISIT SUMMARY EXTRACTED FROM THE [email or web address] CHART. IT IS NOT A COPY OF THE [email or web address] PROGRESS NOTE. MTDD
== END ==
LOC: M PAIN 11:15
PROVIDERS: ATTEND Family Medicine
DX: M54.2 Cervicalgia (principal); I10 Essential (primary) hypertension; J45.909 Unspecified asthma, uncomplicated; F32.9 Major depressive disorder, single episode, unspecified; F41.9 Anxiety disorder, unspecified; K21.9 Gastro-esophageal reflux disease without esophagitis; Q77.4 Achondroplasia; E55.9 Vitamin D deficiency, unspecified; M51.26 Other intervertebral disc displacement, lumbar region; Z79.891 Long term (current) use of opiate analgesic; Z79.899 Other long term (current) drug therapy; Z88.0 Allergy status to penicillin; Z88.5 Allergy status to narcotic agent; Z88.8 Allergy status to other drugs, medicaments and biological substances

== ENCOUNTER → 2021-01-13 | Outpatient (CLI) | payer OTHER | LOC: M PAIN 10:30 | PROVIDERS: ATTEND Anesthesiology | DX: Z79.891 Long term (current) use of opiate analgesic (principal); G89.29 Other chronic pain ==

== ENCOUNTER → 2021-02-17 | Outpatient (CLI) | payer OTHER | LOC: M PAIN 11:00 | PROVIDERS: ATTEND Anesthesiology | DX: M54.2 Cervicalgia (principal); G89.29 Other chronic pain; J45.909 Unspecified asthma, uncomplicated; E55.9 Vitamin D deficiency, unspecified; Z86.59 Personal history of other mental and behavioral disorders; Z98.84 Bariatric surgery status; Z88.0 Allergy status to penicillin; Z88.5 Allergy status to narcotic agent; Z88.8 Allergy status to other drugs, medicaments and biological substances; E66.01 Morbid (severe) obesity due to excess calories; Z68.45 Body mass index [BMI] 70 or greater, adult; Z79.899 Other long term (current) drug therapy ==

== ENCOUNTER → 2021-12-13 | Outpatient (REF) | LOC: M PLAIMG 13:18 | PROVIDERS: ATTEND Internal Medicine | DX: M48.061 Spinal stenosis, lumbar region without neurogenic claudication (principal); M51.37 Other intervertebral disc degeneration, lumbosacral region; M48.02 Spinal stenosis, cervical region ==

== ENCOUNTER → 2023-04-24 | Outpatient (REF) | LOC: M PLAIMG 11:37 | PROVIDERS: ATTEND Internal Medicine | DX: R52 Pain, unspecified (principal) ==